=== PATIENT | female | born 1990 | race American Indian/Alaskan Native ===

== ENCOUNTER 2016-12-26 16:34 | Emergency (ER) | payer BC, OTHER ==
--- NOTE | 2016-12-26 18:58 | Emergency Department Report ---
ED Chest Pain HPI - General Chief Complaint: Chest Pain Stated Complaint: CHEST PAIN Time Seen by Provider: 12/26/16 18:46 Source: patient Mode of arrival: Ambulatory Limitations: Language Barrier - History of Present Illness Initial Comments: This is a 26-year-old female, previously unknown to me. She does not have a primary care doctor. She denies chronic medical conditions. She does not use drugs or tobacco. She denies cocaine use to me. There is a positive family history of pulmonary emboli and her father. The patient presents to the ER complaining of chest pain. The chest pain has been present for 3 days. It is central. It does not radiate to the back, arms or neck. There is no vomiting, there is no diaphoresis. The patient to me states that her bilateral lower jaw hurts, and that her throat hurts. However she specifically informed me that the chest pain does not radiate to the jaw. She also complains that her head hurts, that her eyeballs hurt, and that her total body hurts. There is no leg pain. There is no leg swelling. No recent trips greater than 4 hours. No recent hospital admissions. Does not take control tablets. Patient reports that she feels "off", and "just wants to get checked out." Cannot describe exacerbating or relieving factors. She does report pain with deep inspiration. This is intermittent. MD Complaint: chest pain -: Gradual Onset: during rest Pain Location: substernal Severity: mild Quality: aching Consistency: intermittent Improves With: nothing Worsens With: nothing Other Symptoms: cough Treatments Prior to Arrival: other (tylenol) Aspirin use within the Past 7 Days: (0) No - Related Data Previous Rx's Medication Instructions Recorded Last Taken Type Emtricitabin/Tenofovir [TRUVADA 1 tab PO QDAY #3 tablet 04/03/16 Unknown Rx 200-300 mg] Raltegravir Potassium [Isentress] 400 mg PO BID #6 tablet 04/03/16 Unknown Rx Allergies Allergy/AdvReac Type Severity Reaction Status Date / Time No Known Allergies Allergy Verified 12/26/16 16:49 SIMEON score - Simeon Score Age > 65: (0) No Aspirin use within the Past 7 Days: (0) No 3 or more CAD Risk Factors: (0) No 2 or more Angina events in past 24 hrs: (0) No Known CAD with more than 50% Stenosis: (0) No Elevated Cardiac Markers: (0) No ST Deviation Greater than 0.5mm: (0) No SIMEON Score: 0 ED Review of Systems ROS: Stated complaint: CHEST PAIN Other details as noted in HPI Constitutional: denies: fever Eyes: denies: eye discharge ENT: denies: epistaxis Respiratory: see HPI Cardiovascular: chest pain Gastrointestinal: denies: abdominal pain Genitourinary: denies: urgency, dysuria, discharge Musculoskeletal: denies: back pain, joint swelling, arthralgia Skin: denies: rash, lesions Neurological: weakness Psychiatric: anxiety ED Past Medical Hx - Past Medical History Previous Medical History?: No - Surgical History Past Surgical History?: No - Social History Smoking Status: Current Some Day Smoker Substance Use Type: Alcohol - Medications Home Medications: Home Medications Medication Instructions Recorded Confirmed Last Taken Type Emtricitabin/Tenofovir [TRUVADA 1 tab PO QDAY #3 tablet 04/03/16 Unknown Rx 200-300 mg] Raltegravir Potassium [Isentress] 400 mg PO BID #6 tablet 04/03/16 Unknown Rx ED Physical Exam - General Limitations: No Limitations General appearance: alert, in no apparent distress - Head Head exam: Present: atraumatic, normocephalic - Eye Eye exam: Present: normal appearance, PERRL, EOMI, other (visual acuity is intact to color perception, finger counting, rating at a close distance.). Absent: nystagmus - ENT ENT exam: Present: normal exam, normal orophraynx, mucous membranes moist, TM's normal bilaterally, normal external ear exam - Neck Neck exam: Present: normal inspection, full ROM. Absent: tenderness, meningismus - Respiratory Respiratory exam: Present: normal lung sounds bilaterally. Absent: respiratory distress, wheezes, rales, rhonchi, stridor, chest wall tenderness - Cardiovascular Cardiovascular Exam: Present: regular rate, normal rhythm, normal heart sounds. Absent: bradycardia, tachycardia, irregular rhythm, systolic murmur, diastolic murmur, rubs, gallop - GI/Abdominal GI/Abdominal exam: Present: soft, normal bowel sounds. Absent: distended, tenderness, guarding, rebound, rigid, pulsatile mass - Extremities Exam Extremities exam: Present: normal inspection, full ROM, normal capillary refill. Absent: tenderness, pedal edema, joint swelling, calf tenderness - Back Exam Back exam: Present: normal inspection, full ROM. Absent: tenderness, CVA tenderness (R), CVA tenderness (L), muscle spasm, paraspinal tenderness, vertebral tenderness - Neurological Exam Neurological exam: Present: alert, oriented X3, normal gait (there is no past- pointing. Normal [id number]. Normal gait. Normal tandem gait. Negative Romberg exam.), other (Extraocular movements intact. Tongue midline. No facial droop. Facial sensation intact to light touch in the V1, V2, V3 distribution bilaterally. 5 and 5 strength in 4 extremities.. Sensation is intact to light touch in 4 extremities.). Absent: motor sensory deficit - Psychiatric Psychiatric exam: Present: normal affect, normal mood - Skin Skin exam: Present: warm, dry, intact, normal color. Absent: rash ED Course Vital Signs 12/26/16 12/26/16 16:51 20:47 Temperature 98.5 F 98.8 F Pulse Rate 98 H 84 Respiratory 19 18 Rate Blood Pressure 151/103 Blood Pressure 130/82 [Left] O2 Sat by Pulse 98 99 Oximetry - Reevaluation(s) Reevaluation #1: 12/26/16 19:21 Differential diagnosis: Acute coronary syndrome, GERD, gastritis, viral syndrome , pneumonia, pulmonary embolus, costochondritis Assessment and plan: 26-year-old female with a family history of pulmonary embolus, with chest pressure, nonspecific pleuritic discomfort, but otherwise no pulmonary embolus or DVT risk factors, low risk by well's criteria, and perc negative. She is afebrile with reassuring vital signs with exception of sligh hypertension. She walks with a steady gait, and while in the emergency department, is noted to be speaking and laughing with numerous ER staff employees. She is low risk by SIMEON score, and low risk by heart score. Her EKG does demonstrate some nonspecific abnormalities. Laboratory studies, chest x-ray, d-dimer, test are pending. Symptoms have or present for 3 days. Therefore, as per the [employer] clinic policy, myocardial infarction may be excluded with 1 set of cardiac enzymes. We'll reassessed once her data point of all resulted. Reevaluation #2: 12/26/16 20:25 Patient resting comfortably. Feels improved. As expected, troponin negative, d -dimer negative, x-ray chest unremarkable. She will be discharged with instructions to follow up with outpatient cardiology. return precautions are reviewed. ED Medical Decision Making - Lab Data Result diagrams: 12/26/16 18:58 12/26/16 18:58 Vital Signs 12/26/16 16:51 Temperature 98.5 F Pulse Rate 98 H Respiratory 19 Rate Blood Pressure 151/103 O2 Sat by Pulse 98 Oximetry Lab Results 12/26/16 Range/Units 18:58 WBC 4.0 L (4.5-11.0) K/mm3 RBC 4.62 (3.65-5.03) M/mm3 Hgb 13.0 (10.1-14.3) gm/dl Hct 39.3 (30.3-42.9) % MCV 85 (79-97) fl MCH 28 (28-32) pg MCHC 33 (30-34) % RDW 13.0 L (13.2-15.2) % Plt Count 220 (140-440) K/mm3 - EKG Data When compared to previous EKG there are: previous EKG unavailable 12/26/16 19:23 normal sinus, 78 bpm, normal axis, normal intervals, borderline right ventricular conduction delay, abnormal EKG, not morphologically consistent with STEMI, there is no prior EKG available for comparison. - Radiology Data Radiology results: image reviewed interpreted by me: X-ray chest negative for acute disease. Critical care attestation.: If time is entered above; I have spent that time in minutes in the direct care of this critically ill patient, excluding procedure time. ED Disposition Clinical Impression: Chest pain Disposition: DISCHARGED TO HOME OR SELFCARE Is pt being admited?: No Does the pt Need Aspirin: No Condition: Stable Instructions: Chest Pain (ED) Additional Instructions: Laboratory studies, chest x-ray were unremarkable. EKG demonstrated nonspecific abdomen now is. Follow-up with either of the listed cardiologists within the next 3-5 days. Return to the ER right away with new pain, worsened pain, migration of pain, fevers or chills, nausea or vomiting, inability to tolerate liquid feeds. Take ibuprofen every 6 hours with food as needed for pain, or acetaminophen every 4 hours as needed for pain. Referrals: MIKEY ANN MD [Primary Care Provider] - 3-5 Days LOPEZ RODRIGUEZ MD [Staff Physician] - 3-5 Days SORAIDA BRAVO MD [Staff Physician] - 3-5 Days
[2016-12-26 19:10] LABS: Hematocrit 39.3 % (30.3-42.9); Mean Corpuscular HGB Conc 33 % (30-34); Mean Corpuscular Hemoglobin 28 pg (28-32); Mean Corpuscular Volume 85 fl (79-97); Platelet Count 220 K/mm3 (140-440); Red Blood Count 4.62 M/mm3 (3.65-5.03)
[2016-12-26 19:23] LABS: INR 1.02 (0.87-1.13)
[2016-12-26 19:35] LABS: BUN/Creatinine Ratio 21.66; Blood Urea Nitrogen 13 mg/dL (7-17); Calcium 9.1 mg/dL (8.4-10.2); Carbon Dioxide 22 mmol/L (22-30); Chloride 103.7 mmol/L (98-107); Glucose 92 mg/dL (65-100); Potassium 3.8 mmol/L (3.6-5.0); Sodium 138 mmol/L (137-145)
[2016-12-26] MEDS ORDERED: TORADOL IM ONE (19:37)
[2016-12-26] MEDS ORDERED: TORADOL ONE (19:49)
[2016-12-26 20:02] LABS: Anion Gap 16 mmol/L
[2016-12-26 20:48] VITALS: BP 130/82
--- NOTE | 2016-12-27 07:20 | XRay Report ---
CHEST 2 VIEWS INDICATION: Chest pain. COMPARISON: None similar at this institution. FINDINGS: PA and lateral chest radiographs demonstrate normal cardiomediastinal silhouette. Clear lungs. Intact bones. CONCLUSION: No acute disease in the chest. Thank you for the opportunity to participate in this patient's care.
== END 2016-12-26 20:45 | disposition home or self-care (01) ==
LOC: ED 16:34
DX: R07.2 Precordial pain (principal); F17.200 Nicotine dependence, unspecified, uncomplicated
CPT/HCPCS: 36415; 71020; 80048; 84484; 84702; 85027; 85379; 85610; 93005; 93010; 96372; 99285; J1885

== ENCOUNTER 2018-03-08 04:12 | Emergency (ER) | payer BC ==
[2018-03-08 04:38] VITALS: BP 128/91
[2018-03-08 04:53] LABS: Basophils % (Auto) 0.7 % (0.0-1.8); Eosinophils # (Auto) 0.1 K/mm3 (0.0-0.4); Eosinophils % (Auto) 1.4 % (0.0-4.3); Hematocrit 41.2 % (30.3-42.9); Hemoglobin 13.9 gm/dl (10.1-14.3); Lymphocytes # (Auto) 2.1 K/mm3 (1.2-5.4); Mean Corpuscular HGB Conc 34 % (30-34); Mean Corpuscular Hemoglobin 29 pg (28-32); Mean Corpuscular Volume 85 fl (79-97); Monocytes # (Auto) 0.3 K/mm3 (0.0-0.8); Monocytes % (Auto) 6.6 % (0.0-7.3); Platelet Count 197 K/mm3 (140-440); Red Blood Count 4.82 M/mm3 (3.65-5.03); Red Cell Distribution Width 13.2 % (13.2-15.2)
[2018-03-08 05:06] LABS: Alanine Aminotransferase 12 units/L (7-56); Albumin 4.5 g/dL (3.9-5); BUN/Creatinine Ratio 20; Blood Urea Nitrogen 12 mg/dL (7-17); Calcium 8.8 mg/dL (8.4-10.2); Hemolysis Index 1
--- NOTE | 2018-03-08 05:55 | Emergency Department Report ---
ED Palpitations HPI - General Chief Complaint: Arrhythmia/Palpitations Stated Complaint: HIGH BLOOD PRESSURE,RAPID HEART BEAT Time Seen by Provider: 03/08/18 05:16 Source: patient Mode of arrival: Ambulatory Limitations: No Limitations - History of Present Illness Initial Comments: Patient sent while sitting down she started having palpitations. She did not have any chest pain. She said over the last 3 days she's been having intermittent palpitations. Patient does consume a lot of caffeinated based products. Patient also sees that the palpitations might be connected to the new brand of cigarette that she just started MD Complaint: "heart racing", palpitations -: Sudden Context: occured during rest - Related Data Previous Rx's Medication Instructions Recorded Last Taken Type Emtricitabin/Tenofovir [TRUVADA 1 tab PO QDAY #3 tablet 04/03/16 Unknown Rx 200-300 mg] Raltegravir Potassium [Isentress] 400 mg PO BID #6 tablet 04/03/16 Unknown Rx Allergies Allergy/AdvReac Type Severity Reaction Status Date / Time No Known Allergies Allergy Verified 12/26/16 16:49 ED Review of Systems ROS: Stated complaint: HIGH BLOOD PRESSURE,RAPID HEART BEAT Other details as noted in HPI Comment: All other systems reviewed and negative ED Past Medical Hx - Past Medical History Previous Medical History?: No - Surgical History Past Surgical History?: No - Social History Smoking Status: Current Some Day Smoker Substance Use Type: None - Medications Home Medications: Home Medications Medication Instructions Recorded Confirmed Last Taken Type Emtricitabin/Tenofovir [TRUVADA 1 tab PO QDAY #3 tablet 04/03/16 Unknown Rx 200-300 mg] Raltegravir Potassium [Isentress] 400 mg PO BID #6 tablet 04/03/16 Unknown Rx ED Physical Exam - General Limitations: No Limitations General appearance: alert, in no apparent distress - Head Head exam: Present: atraumatic, normocephalic - Eye Eye exam: Present: normal appearance - ENT ENT exam: Present: mucous membranes moist - Neck Neck exam: Present: normal inspection - Respiratory Respiratory exam: Present: normal lung sounds bilaterally. Absent: respiratory distress - Cardiovascular Cardiovascular Exam: Present: regular rate, normal rhythm. Absent: systolic murmur, diastolic murmur, rubs, gallop - GI/Abdominal GI/Abdominal exam: Present: soft, normal bowel sounds. Absent: tenderness - Rectal Rectal exam: Present: deferred - Extremities Exam Extremities exam: Present: normal inspection - Back Exam Back exam: Present: normal inspection - Neurological Exam Neurological exam: Present: alert, oriented X3 - Psychiatric Psychiatric exam: Present: normal affect, normal mood - Skin Skin exam: Present: warm, dry, intact, normal color. Absent: rash ED Course Vital Signs 03/08/18 04:33 Temperature 98.1 F Pulse Rate 85 Respiratory 16 Rate Blood Pressure 128/91 O2 Sat by Pulse 100 Oximetry ED Medical Decision Making - Lab Data Result diagrams: 03/08/18 04:42 03/08/18 04:42 Critical care attestation.: If time is entered above; I have spent that time in minutes in the direct care of this critically ill patient, excluding procedure time. ED Disposition Clinical Impression: Palpitations Disposition: DC-01 TO HOME OR SELFCARE Is pt being admited?: No Does the pt Need Aspirin: No Condition: Stable Instructions: Palpitations (ED) Additional Instructions: Avoid caffeine based products Referrals: VERITO BUTT MD [Primary Care Provider] - 3-5 Days Time of Disposition: 05:54 Print Language: BULGARIAN
== END 2018-03-08 06:12 | disposition home or self-care (01) ==
LOC: ED 04:12
DX: R00.2 Palpitations (principal); F17.200 Nicotine dependence, unspecified, uncomplicated
CPT/HCPCS: 36415; 80053; 84703; 85025; 93005; 93010; 99283

== ENCOUNTER 2018-08-31 19:58 | Emergency (ER) | payer BC ==
[2018-08-31 20:06] VITALS: BP 134/98
--- NOTE | 2018-08-31 21:13 | Emergency Department Report ---
ED Rash HPI - HPI Chief Complaint: Skin Rash Stated Complaint: BED BUGS,FEVER,TONGUE SWOLLEN,EAR ACHE Time Seen by Provider: 08/31/18 20:42 Duration: 2 Days Location: Abdomen, Upper Extremities, Lower Extremities Suspected Cause: Insect (at than evening hours that at a friend's house and woke up to several insect bites. The further evaluation discovered bed bugs) Rash Symptoms: Yes Itching, No Facial Swelling, No Tongue/Oral Swelling, No Breathing Difficulties, No Choking Sensation, No Wheezing/Dyspnea, No Peeling, No Blistering, No Fever, No Lightheaded, No Malaise, No Myalgias Severity: moderate ED Review of Systems ROS: Stated complaint: BED BUGS,FEVER,TONGUE SWOLLEN,EAR ACHE Other details as noted in HPI Constitutional: denies: chills, fever Eyes: denies: eye pain, eye discharge, vision change ENT: denies: ear pain, throat pain Respiratory: denies: cough, shortness of breath, wheezing Cardiovascular: denies: chest pain, palpitations Endocrine: no symptoms reported Gastrointestinal: denies: abdominal pain, nausea, diarrhea Genitourinary: denies: urgency, dysuria, discharge Musculoskeletal: denies: back pain, joint swelling, arthralgia Skin: rash. denies: lesions Neurological: denies: headache, weakness, paresthesias Psychiatric: denies: anxiety, depression Hematological/Lymphatic: denies: easy bleeding, easy bruising ED Past Medical Hx - Past Medical History Previous Medical History?: No - Surgical History Past Surgical History?: No - Social History Smoking Status: Never Smoker Substance Use Type: Alcohol - Medications Home Medications: Home Medications Medication Instructions Recorded Confirmed Last Taken Type Emtricitabin/Tenofovir [TRUVADA 1 tab PO QDAY #3 tablet 04/03/16 Unknown Rx 200-300 mg] Raltegravir Potassium [Isentress] 400 mg PO BID #6 tablet 04/03/16 Unknown Rx Mometasone Furoate [Elocon] 1 applicatio TP QDAY #45 cream..g. 08/31/18 Unknown Rx hydrOXYzine HCL [Atarax] 25 mg PO Q6HR PRN #20 tablet 08/31/18 Unknown Rx predniSONE [Deltasone] 20 mg PO BID #10 tablet 08/31/18 Unknown Rx Rash Exam - Exam General: Vital signs noted. No distress. Alert and acting appropriately. HEENT: No Periorbital Edema, No Conjuctival Injection, No Chemosis, No Perioral Edema, No Tongue Edema, No Uvular Edema, No Compromised Airway, No Drooling Lungs: Yes Good Air Exchange (Normal Breath Sounds), No Wheezes, No Ronchi, No Stridor, No Cough, No Labored Respirations, No Retractions, No Use of Accessory Muscles, No Other Abnormal Lung Sounds Heart: Yes Regular, No Murmur Skin: Yes Erythema (several papular indurated bite sites that involving the extremities and torso. Several are in a linear pattern), No Urticarial Rash, No Maculopapular Rash, No Bulla(e), No Excoriations, No Weeping, No Tenderness, No Encrustations Other: Positive: Abdomen Normal, Neurologic Normal, Musculoskeletal Normal ED Course Vital Signs 08/31/18 20:04 Temperature 98.4 F Pulse Rate 89 Respiratory 18 Rate Blood Pressure 134/98 O2 Sat by Pulse 100 Oximetry Critical care attestation.: If time is entered above; I have spent that time in minutes in the direct care of this critically ill patient, excluding procedure time. ED Disposition Clinical Impression: Bed bug bite, Otalgia of left ear Disposition: DC-01 TO HOME OR SELFCARE Is pt being admited?: No Does the pt Need Aspirin: No Condition: Stable Instructions: Insect Bite or Sting (ED) Prescriptions: hydrOXYzine HCL [Atarax] 25 mg PO Q6HR PRN #20 tablet PRN Reason: Itching Mometasone Furoate [Elocon] 1 applicatio TP QDAY #45 cream..g. predniSONE [Deltasone] 20 mg PO BID #10 tablet Referrals: PRIMARY CARE, [Primary Care Provider] - 3-5 Days Forms: Work/School Release Form(ED)
== END 2018-08-31 21:15 | disposition home or self-care (01) ==
LOC: ED 19:58
DX: S30.861A Insect bite (nonvenomous) of abdominal wall, initial encounter (principal); H92.02 Otalgia, left ear; W57.XXXA Bitten or stung by nonvenomous insect and other nonvenomous arthropods, initial encounter; Y93.89 Activity, other specified; Y92.89 Other specified places as the place of occurrence of the external cause; Y99.8 Other external cause status
CPT/HCPCS: 99282